=== PATIENT | male | born 1945 | race Caucasian/White ===

== ENCOUNTER 2018-11-29 05:43 | Observation (INO) | payer SELFPAY ==
[2018-11-26 11:21] LABS: CREATININE 1.4 mg/dL (0.5-1.5); POTASSIUM 4.8 mmol/L (3.5-5.1)
[2018-11-26 11:30] VITALS: BP 95/70
[2018-11-26 11:30] LABS: BASOPHILS % (AUTO) 0.9 % (0.0-5.0); EOSINOPHILS % (AUTO) 1.9 % (0.0-8.0); HEMATOCRIT 43.1 % (42-54); LYMPHOCYTES % (AUTO) 12.1 % (21.0-51.0); MEAN CORPUSCULAR HEMOGLOBIN 32.2 pg (27.0-33.0); MEAN CORPUSCULAR HGB CONC 33.8 g/dL (32.0-36.0); MEAN CORPUSCULAR VOLUME 95.1 fL (79-99); MONOCYTES % (AUTO) 7.2 % (3.0-13.0); NEUTROPHILS % (AUTO) 77.9 % (40.0-77.0); NUCLEATED RED BLOOD CELLS 0.1 % (0.0-0.19); PLATELET COUNT (AUTO) 268 K/uL (130-400); RED BLOOD CELL COUNT(AUTO) 4.53 MIL/uL (4.50-6.20); RED CELL DISTRIBUTION WIDTH 13.6 % (11.0-15.5); WHITE BLOOD COUNT (AUTO) 7.1 K/uL (4.8-10.8)
[2018-11-26 11:43] LABS: INR 1.15 (0.85-1.15); PARTIAL THROMBOPLASTIN TIME 29.9 SEC (26.3-35.5)
[2018-11-29] VITALS (28 sets, daily range): BP systolic 75–128; BP diastolic 45–76
[~2018-11-29] VITALS: Ht 188 cm; Wt 91.5 kg
[~2018-11-29 05:43] MED LIST: AMIO100T4 PO; BISO5TAB2 PO; RAMI2.5C16 PO; RIVA20TA PO; SPIR25TA6 PO; [UNRECOGNIZED DRUG - OTHER] PO
[2018-11-29] MEDS ORDERED: SODIUM CHLORIDE 0.9% 1000ML 1,000 ML IV ONE (06:54)
[2018-11-29] MEDS ORDERED: LIDOCAINE HCL 2% 20ML ONE (07:19)
[2018-11-29] MEDS ORDERED: HEPARIN SODIUM 1000UNIT/ML 10ML VIAL ONE (07:51)
[2018-11-29] MEDS ORDERED: MIDAZOLAM HCL 1 MG/ML 2ML VIAL ONE ×2 (07:51→08:09)
[2018-11-29] MEDS ORDERED: MEPERIDINE-PF 25 MG/ML SYG ONE ×2 (07:51→08:10)
[2018-11-29] MEDS ORDERED: ACETAMINOPHEN 325 MG TAB PO PRN ×3 (10:15→21:30)
[2018-11-29] MEDS ORDERED: ATROPINE SULFATE 0.1 MG/ML 10 ML SYG IVP ONE (12:14)
--- NOTE | 2018-11-29 16:30 | NUR ---
ASSESSMENT RECEIVED PT FROM DAY PATIENT, IN SEMI CHAVIRA'S POSITION, A&OX3, CALM COOPERATIVE AND DOES NOT APPEAR TO BE IN ANY DISTRESS NOR ANY NEURO DEFICITS PRESENT. PT DENIES PAIN, SOB, NAUSEA. TELE MONITOR DISPLAYS NSR WITH A RATE OF 45-50 BEATS PER MINUTE. LUNGS SOUNDS CLEAR, ABDOMEN SOFT. RT GROIN SOFT NONTENDER WITH NO OOZING OR HEMATOMA PRESENT. DP/PT PULSES PALPABLE. PT ON BEDREST, CALL LIGHT WITHIN REACH, FAMILY AT BEDSIDE.
--- NOTE | 2018-11-29 18:00 | NUR ---
AMBULATION PT AMBULATING IN HALLWAY, GAIT STEADY AND STRONG WITH STAND BY ASSIST, TELE MONITOR DISPLAYS NSR WITH A RATE OF 63 DURING AMBULATION AND 55 POST AMBULATION IN SITTING POSITION. PT DENIES DIZZINESS, LIGHTHEADEDNESS OR PAIN. PT APPEARS COMFORTABLE, CALL LIGHT WITHIN REACH, FAMILY AT BEDSIDE.
[2018-11-29] MEDS ORDERED: DOPAMINE HCL 400 MG/D5%-WATER 250 ML IV PRN (20:00)
--- NOTE | 2018-11-29 20:45 | NUR ---
RECEIVED WC FROM 220. ASSISTED TO BED AND PLACED ON DIRECTOR OF CONTRACTS, NIBP AND PULSE OXIMETER. DENIES PAIN SOB. CALL LIGHT GIVEN AND EXPLAINED. INFORMED OF NEED FOR DOPAMINE DRIP FOR HR . WITH HIM AND ALSO AWARE OF THIS. DOPAMINE DRIP STARTED AT 3MCG/KG/MIN TO LEFT WRIST SALINE WELL. ASSESSMENT COMPLETED SEE FLOW SHEET. DDI TO RIGHT GROIN AND PULSES PRESENT. FEET WARM WITH GOOD CMS. INSTRUCTED TO CALL FOR WANTS OR NEEDS.
--- NOTE | 2018-11-29 20:45 | NUR ---
Spoke with Dr Rowan earlier. Reported bradycardia, rate down to 30's sustained, briefly 20's junctional. Asymptomatic, SBP 90. Ordered start Dopamine drip and titrate to heartrate 50 or greater, SBP 100 or greater. Transferred to ICU as per Dr Rowan's orders. HS EMELYN Macedo informed. Report to Francesca HANLEY. Admitted to room 207. with patient. Raj Stubbs promotional advertising assistant for Dr Egan here rounding. Informed of pt status, transfer.
--- NOTE | 2018-11-29 21:02 | NUR ---
Refused Lipitor, states it makes him cough. Addendum: 11/29/18 at 2131 by VANITA THORNTON RN RN please disregard note, not correct patient.
[2018-11-29] MEDS ORDERED: ONDANSETRON HCL 4 MG/2 ML VIAL IV PRN (21:30)
[2018-11-29] MEDS: APIXABAN 5 MG TABLET PO SCH (22:45)
[2018-11-29] MEDS: SODIUM CHLORIDE 0.9% 1000ML 1,000 ML IV SCH (22:45)
[2018-11-30] VITALS (14 sets, daily range): BP systolic 96–129; BP diastolic 45–66
[2018-11-30] MEDS: SODIUM CHLORIDE 0.9% 1000ML 1,000 ML IV SCH (06:28)
[2018-11-30] MEDS: APIXABAN 5 MG TABLET PO SCH (08:29)
[2018-11-30] MEDS ORDERED: ENOXAPARIN SODIUM 30 MG/0.3 ML SQ SCH (09:00)
[2018-11-30] MEDS ORDERED: SPIRONOLACTONE 25 MG TAB PO SCH (09:00)
== END 2018-11-30 16:00 | disposition home or self-care (01) ==
LOC: DAH 05:43 → DAHIP 05:44 → DAH 05:44 → 2DH 16:17 → 2BH 20:08
PROVIDERS: ADMIT Internal Medicine; ATTEND Internal Medicine
DX: I48.3 Typical atrial flutter (principal); I35.8 Other nonrheumatic aortic valve disorders; I48.2 Chronic atrial fibrillation; I45.9 Conduction disorder, unspecified; Z79.01 Long term (current) use of anticoagulants; Z79.899 Other long term (current) drug therapy; Z83.3 Family history of diabetes mellitus
CPT/HCPCS: 36415; 80048; 85025; 85610; 85730; 93005; 93306; 93613; 93621; 93653; 96365; 96366 ×2; 96375; A4606; A4649; C1730 ×2; C1732; C1894 ×2; G0378 ×25; J0461; J1644 ×2; J2175 ×2; J2250 ×2; J3490; J7030 ×3; 99156; 99157